=== PATIENT | male | born 1970 | race Caucasian/White ===

== ENCOUNTER → 2020-01-17 | Outpatient (REF) | payer OTHER | LOC: M LAB REF 12:32 | PROVIDERS: ATTEND Surgery | DX: Z11.59 Encounter for screening for other viral diseases (principal) ==

== ENCOUNTER → 2020-11-27 | Outpatient (REF) | payer OTHER ==
[2020-11-27 17:32] LABS: FREE T4 0.77 NG/DL (0.76-1.46); THYROID STIMULATING HORMONE 5.18 uIU/ML (0.358-3.740)
== END ==
LOC: M LAB REF 16:01
PROVIDERS: ATTEND Surgery
DX: Z79.899 Other long term (current) drug therapy (principal)

== ENCOUNTER → 2022-12-31 | Outpatient (CLI) | payer OTHER ==
[2022-12-31 17:21] LABS: HEMATOCRIT 38.9 % (42.0-52.0); HEMOGLOBIN 13.4 g/dl (13.5-17.5); MEAN CORPUSCULAR HEMOGLOBIN 30.1 pg (27.0-33.0); MEAN CORPUSCULAR HGB CONC 34.4 g/dl (32.0-36.5); MEAN CORPUSCULAR VOLUME 87.4 fl (80.0-96.0); PLATELET COUNT, AUTOMATED 200 10^3/uL (150-450); RED BLOOD COUNT 4.45 10^6/uL (4.30-6.10); WHITE BLOOD COUNT 6.1 10^3/uL (4.0-10.0)
[2022-12-31 17:48] LABS: ALBUMIN 4.2 G/DL (3.2-5.2); ALKALINE PHOSPHATASE 75 U/L (46-116); ALT/SGPT 76 U/L (7.0-40); AST/SGOT 51 U/L (<34); BILIRUBIN,TOTAL 0.5 MG/DL (0.3-1.2); BLOOD UREA NITROGEN 19 MG/DL (9-23); CALCIUM LEVEL 9.4 MG/DL (8.5-10.1); CARBON DIOXIDE LEVEL 30 MMOL/L (20-31); CHLORIDE LEVEL 102 MMOL/L (98-107); CREATININE FOR GFR 0.85 MG/DL (0.70-1.30); GLOMERULAR FILTRATION RATE > 60.0 (>56); GLUCOSE, FASTING 98 MG/DL (60-100); POTASSIUM SERUM 4.5 MMOL/L (3.5-5.1); SODIUM LEVEL 137 MMOL/L (136-145); TOTAL PROTEIN 7.7 G/DL (5.7-8.2)
[2022-12-31 18:06] LABS: HEPATITIS B SURFACE ANTIGEN NEGATIVE (NEGATIVE)
[2022-12-31 18:19] LABS: HIV 1&2 SCREEN NEGATIVE (NEGATIVE)
[2022-12-31 18:40] LABS: HEPATITIS C VIRUS ABY INDEX > 11.0 INDEX (<0.8)
[2022-12-31 18:43] LABS: GC DNA AMPLIFICATION NEGATIVE (NEGATIVE)
== END ==
LOC: M WUC 13:34
PROVIDERS: ATTEND Family Medicine
DX: F11.20 Opioid dependence, uncomplicated (principal)